=== PATIENT | female | born 1995 | race Caucasian/White ===

== ENCOUNTER 2016-11-06 04:11 | Emergency (ER) | payer OTHER, BC ==
[2016-11-06] MEDS ORDERED: Sodium Chloride 0.9% 10 ML Syringe FLUSH PRN (04:17)
[2016-11-06] MEDS ORDERED: Racepinephrine 2.25% 0.5 ML Neb Soln NEB ONE (04:17)
[2016-11-06] MEDS ORDERED: Budesonide 0.5 MG/2 ML Neb Susp NEB ONE (04:17)
[2016-11-06] MEDS ORDERED: Racepinephrine 2.25% 0.5 ML Neb Soln ONE (04:17)
[2016-11-06] MEDS ORDERED: Sodium Chloride 0.9% 1,000 ML IV SCH (04:30)
[2016-11-06] MEDS ORDERED: Adenosine 6 MG/2 ML SDV ONE (04:50)
[2016-11-06] MEDS ORDERED: Adenosine 6 MG/2 ML SDV IVPUSH ONE ×2 (04:53→04:59)
[2016-11-06] MEDS ORDERED: Metoprolol Tartrate 5 MG/5 ML SDV IVPUSH ONE (04:59)
[2016-11-06] MEDS ORDERED: methylPREDNISolone Sodium Succinate 125 MG/2 ML SDV IVPUSH ONE (04:59)
--- NOTE | 2016-11-06 05:06 | EDM.PDOC ---
[id number]: [facility] [place] Time Seen by Provider: 11/06/16 04:11 Source of Information: Reports: Patient (04), EMS, RN Notes Reviewed History Limitations: Reports: No Limitations - History of Present Illness INITIAL COMMENTS - FREE TEXT/NARRATIVE: EMS arrival, received albuterol, albuterol/ipratropium, and albuterol nebulizer prior to arrival as well as terbutaline 0.25 mg subcutaneous. Chief complaint Trouble breathing History of present illness 41-year-old female with history of asthma and history of SVT, never admitted or intubated with asthma in the past. Started developing a cough and shortness of breath when she woke up about 45 minutes before calling the ambulance. No fever or chills No chance of Throat is sore voice is somewhat hoarse. No chest pain no abdominal pain no diarrhea no vomiting After arrival during treatment she started developing sharp chest pain. Additional history of SVT treated with adenosine a year ago Treatments [employer]: Reports: Breathing Treatments, EKG, Other Medication(s) headache Pain Score (Numeric/FACES): 6 - Related Data Allergies Allergy/AdvReac Type Severity Reaction Status Date / Time ciprofloxacin [From Cipro] Allergy Hives Verified 11/06/16 04:42 Home Meds: Home Meds Albuterol Sulfate [Ventolin Hfa] 2 puff INH Q4H PRN 11/06/16 [History] Potassium Chloride 20 meq PO BID #6 tablet.er 11/06/16 [Rx] Prednisone [IJD: predniSONE] 20 mg PO BID #10 tab 11/06/16 [Rx] Sertraline HCl [Zoloft] 200 mg PO DAILY 11/06/16 [History] buPROPion HCl [Wellbutrin Xl] 150 mg PO DAILY 11/06/16 [History] traMADol [Ultram] 50 mg PO QID PRN #8 tab 11/06/16 [Rx] Past Medical History Cardiovascular History: Reports: Other (See Below) Other Cardiovascular History: SVT Respiratory History: Reports: Asthma Psychiatric History: Reports: Depression - Past Surgical History HEENT Surgical History: Reports: Adenoidectomy, Tonsillectomy GI Surgical History: Reports: Appendectomy Musculoskeletal Surgical History: Reports: Other (See Below) Other Musculoskeletal Surgeries/Procedures:: screw in hip ED ROS GENERAL - Review of Systems Review Of Systems: See Below Constitutional: Denies: Fever, Chills, Diaphoresis HEENT: Reports: Throat Pain, Throat Swelling. Denies: Ear Pain, Eye Pain, Rhinitis Respiratory: Reports: Shortness of Breath, Wheezing, Cough Cardiovascular: Reports: Chest Pain, Palpitations Endocrine: Reports: No Symptoms GI/Abdominal: Reports: No Symptoms : Reports: No Symptoms Musculoskeletal: Reports: No Symptoms Skin: Reports: No Symptoms Neurological: Reports: No Symptoms (So) Hematologic/Lymphatic: Reports: No Symptoms Immunologic: Reports: No Symptoms ED EXAM, GENERAL - Physical Exam Exam: See Below Exam Limited By: No Limitations General Appearance: Alert, Moderate Distress, Other (Tachycardia present, BiPAP in place, inspiratory stridor is noted) Eye Exam: Right Eye: Normal Inspection Ears: Normal External Exam, Normal Canal, Hearing Grossly Normal, Normal TMs Nose: Normal Inspection, Normal Mucosa Throat/Mouth: Normal Lips, Normal Teeth, Normal Gums, Other (Mild edema and erythema of the soft palate and uvula, mildly hoarse voice) Head: Atraumatic Neck: Supple, Non-Tender. No: Lymphadenopathy (R), Lymphadenopathy (L) Respiratory/Chest: Chest Non-Tender, Stridor (But this is extinguished by getting her to talk), Other (BiPAP was taken off and no wheezing noted). No: Rales, Rhonchi, Wheezing Cardiovascular: Tachycardia GI/Abdominal: Normal Bowel Sounds, Soft, Non-Tender Back Exam: Normal Inspection Extremities: Normal Inspection Neurological: Alert, Oriented, Normal Cognition Psychiatric: Anxious Skin Exam: Warm, Dry, Intact, Normal Color, No Rash Lymphatic: No Adenopathy Course - Vital Signs Last Recorded V/S: Last Vital Signs Temp 36.9 C 11/06/16 04:39 Pulse 143 H 11/06/16 05:12 Resp 16 11/06/16 06:01 BP 137/78 11/06/16 06:01 Pulse Ox 97 11/06/16 06:01 - Orders/Labs/Meds Orders: Active Orders 24 hr Category Date Time Status EKG Documentation Completion [RC] ASDIRECTED Care 11/06/16 04:17 Active Peripheral IV Care [RC] . DIRECTED Care 11/06/16 04:17 Active RT Aerosol Therapy [RC] ASDIRECTED Care 11/06/16 04:18 Active Chest 1V Frontal [CR] Stat Exams 11/06/16 04:48 Taken CULTURE STREP A CONFIRMATION [RM] Stat Lab 11/06/16 05:10 Results STREP SCRN A RAPID W CULT CONF [] Stat Lab 11/06/16 05:10 Results Sodium Chloride 0.9% [Normal Saline] 1,000 ml Med 11/06/16 04:30 Active IV ASDIRECTED Sodium Chloride 0.9% [Saline Flush] Med 11/06/16 04:17 Active 10 ml FLUSH ASDIRECTED PRN Peripheral IV Insertion Adult [OM.PC] Routine Oth 11/06/16 04:16 Ordered EKG 12 Lead [EK] Routine Ther 11/06/16 04:16 Ordered Medication Orders Sodium Chloride (Normal Saline) 1,000 mls @ 125 mls/hr IV ASDIRECTED SHANNEN Last Admin: 11/06/16 04:37 Dose: 125 mls/hr Sodium Chloride (Saline Flush) 10 ml FLUSH ASDIRECTED PRN PRN Reason: Keep Vein Open Last Admin: 11/06/16 04:38 Dose: 10 ml Labs: Laboratory Tests 11/06/16 11/06/16 Range/Units 04:36 04:36 WBC 10.9 (4.5-11.0) K/uL RBC 4.63 (3.30-5.50) M/uL Hgb 13.0 (12.0-15.0) g/dL Hct 38.6 (36.0-48.0) % MCV 83 (80-98) fL MCH 28 (27-31) pg MCHC 34 (32-36) % Plt Count 309 (150-400) K/uL Sodium 140 (140-148) mmol/L Potassium 2.7 L* (3.6-5.2) mmol/L Chloride 104 (100-108) mmol/L Carbon Dioxide 20 L (21-32) mmol/L Anion Gap 18.7 H (5.0-14.0) mmol/L BUN 6 L (7-18) mg/dL Creatinine 1.0 (0.6-1.0) mg/dL Est Cr Clr Drug Dosing TNP Estimated GFR (MDRD) > 60 (>60) Glucose 164 H (74-106) mg/dL Calcium 8.7 (8.5-10.1) mg/dL Meds: Medications Generic Name Dose Route Start Last Admin Trade Name Freq PRN Reason Stop Dose Admin Sodium Chloride 1,000 mls @ 125 mls/hr 11/06/16 04:30 11/06/16 04:37 Normal Saline IV 125 mls/hr ASDIRECTED SHANNEN Administration Sodium Chloride 10 ml 11/06/16 04:17 11/06/16 04:38 Saline Flush FLUSH 10 ml ASDIRECTED PRN Administration Keep Vein Open Discontinued Medications Generic Name Dose Route Start Last Admin Trade Name Eduardo PRN Reason Stop Dose Admin Adenosine Confirm 11/06/16 04:50 11/06/16 05:04 Adenocard Administered 11/06/16 04:51 Not Given Dose 18 mg .ROUTE .STK-MED ONE Adenosine 6 mg 11/06/16 04:53 11/06/16 04:52 Adenocard IVPUSH 11/06/16 04:54 6 mg NOW ONE Administration Adenosine 12 mg 11/06/16 04:59 11/06/16 04:55 Adenocard IVPUSH 11/06/16 05:00 12 mg NOW ONE Administration Budesonide 0.5 mg 11/06/16 04:17 11/06/16 04:34 Pulmicort NEB 11/06/16 04:18 0.5 mg ONETIME ONE Administration Methylprednisolone Sodium Succinate 125 mg 11/06/16 04:59 11/06/16 05:09 Solu-Medrol IVPUSH 11/06/16 05:00 125 mg ONETIME ONE Administration Metoprolol Tartrate 5 mg 11/06/16 04:59 11/06/16 05:12 Lopressor IVPUSH 11/06/16 05:00 5 mg ONETIME ONE Administration Potassium Chloride 20 meq 11/06/16 05:54 11/06/16 06:00 Klor-Con M20 PO 11/06/16 05:55 20 meq ONETIME ONE Administration Racepinephrine 0.5 ml 11/06/16 04:17 11/06/16 04:25 S-2 2.25% NEB 11/06/16 04:18 0.5 ml ONETIME ONE Administration Tramadol HCl 50 mg 11/06/16 06:28 11/06/16 06:42 Ultram PO 11/06/16 06:29 50 mg ONETIME ONE Administration - Re-Assessments/Exams Free Text/Narrative Re-Assessment/Exam: 11/06/16 05:08 21-year-old female presenting with difficulty breathing and with tachycardia. Difficulty breathing appears to be originating in the throat rather than the lungs the lungs sound quite clear and there is stridor rather than wheezing present. EKG shows narrow complex tachycardia rate 152 Epinephrine 0.5 mg by nebulizer with slight relief PAS 90.5 mg by nebulizer. Adenosine 6 mg followed by 12 mg IV for tachycardia with no response Metoprolol 5 mg IV ordered This resulted in heart rate between 100-110 Solu-Medrol Medrol 125 mg IV for swelling in the throat Chest x-ray negative by my interpretation 11/06/16 06:40 Strep screen was negative Potassium 2.7, perhaps low because of both nebulizers CBC was normal Condition improved total she had more chest discomfort during her stay here. Never was hypoxic on room air. Impression #1 uvulitis or laryngeal tracheitis, treated with oral prednisone #2 SVT, or tachycardia, treated with metoprolol after no effect with adenosine #3 hypokalemia Follow-up needed to recheck potassium, will give 3 days as treatment Tramadol 50 mg by mouth for pain given here C prescriptions below Return to emergency if worsening, see discharge instructions Departure - Departure Time of Disposition: 06:33 Disposition: Home, Self-Care 01 Condition: Good Clinical Impression: Laryngotracheitis, Supraventricular tachycardia, Hypokalemia - Discharge Information Prescriptions: Potassium Chloride 20 meq PO BID #6 tablet.er Prednisone [IJD: predniSONE] 20 mg PO BID #10 tab traMADol [Ultram] 50 mg PO QID PRN #8 tab PRN Reason: Moderate pain Instructions: Paroxysmal Supraventricular Tachycardia, Uvulitis, Hypokalemia Referrals: PCP,None [Primary Care Provider] - Forms: ED Department Discharge Additional Instructions: What brought you here tonight was a sore throat. There is swelling in the uvula at the back of the throat and in the windpipe which causes a voice to be hoarse , this can be called uvulitis or laryngotracheitis. This will improve with steroid medication such as prednisone which reduces swelling. This is most likely caused by a virus or also be caused by allergies. Your blood count was normal and you have not had a fever so bacterial infection is not expected so antibiotics are not prescribed. Your potassium was low perhaps as a result of all the nebulizers you had. Please make an appointment to be seen by her physician or clinic in the next week, to have her potassium rechecked and determine if any further treatment is needed Return to the emergency room if you are getting short of breath, develop high fevers, repeated vomiting or any other new symptoms - My Orders Last 24 Hours: My Active Orders 11/06/16 04:16 Peripheral IV Insertion Adult [OM.PC] Routine EKG 12 Lead [EK] Routine 11/06/16 04:17 EKG Documentation Completion [RC] ASDIRECTED Peripheral IV Care [RC] . DIRECTED Sodium Chloride 0.9% [Saline Flush] 10 ml FLUSH ASDIRECTED PRN 11/06/16 04:18 RT Aerosol Therapy [RC] ASDIRECTED 11/06/16 04:30 Sodium Chloride 0.9% [Normal Saline] 1,000 ml IV ASDIRECTED 11/06/16 04:48 Chest 1V Frontal [CR] Stat 11/06/16 05:10 CULTURE STREP A CONFIRMATION [RM] Stat STREP SCRN A RAPID W CULT CONF [RM] Stat - Assessment/Plan Last 24 Hours: My Active Orders 11/06/16 04:16 Peripheral IV Insertion Adult [OM.PC] Routine EKG 12 Lead [EK] Routine 11/06/16 04:17 EKG Documentation Completion [RC] ASDIRECTED Peripheral IV Care [RC] . DIRECTED Sodium Chloride 0.9% [Saline Flush] 10 ml FLUSH ASDIRECTED PRN 11/06/16 04:18 RT Aerosol Therapy [RC] ASDIRECTED 11/06/16 04:30 Sodium Chloride 0.9% [Normal Saline] 1,000 ml IV ASDIRECTED 11/06/16 04:48 Chest 1V Frontal [CR] Stat 11/06/16 05:10 CULTURE STREP A CONFIRMATION [RM] Stat STREP SCRN A RAPID W CULT CONF [RM] Stat
[2016-11-06] MEDS ORDERED: Potassium Chloride 20 MEQ Tab.ER PO ONE (05:54)
[2016-11-06] MEDS ORDERED: traMADol 50 MG Tab PO ONE (06:28)
[2016-11-06 06:55] VITALS: BP 142/85
--- NOTE | 2016-11-06 09:10 | CR ---
Chest 1V Frontal HISTORY: chest pain tachycardia COMPARISON: None FINDINGS: Portable chest, 0503 hours. Lungs appear clear and normally aerated. Cardiomediastinal silhouette is within normal limits. No va scular redistribution or pleural fluid can be seen. Bony structures and soft tissues are unremarkabl e. IMPRESSION: No acute chest abnormality identified.
== END 2016-11-06 06:52 | disposition home or self-care (01) ==
LOC: JP.ED 04:11
DX: J04.2 Acute laryngotracheitis (principal); I47.1 Supraventricular tachycardia; E87.6 Hypokalemia; J45.909 Unspecified asthma, uncomplicated; F32.9 Major depressive disorder, single episode, unspecified; Z88.1 Allergy status to other antibiotic agents; Z79.899 Other long term (current) drug therapy; Z90.49 Acquired absence of other specified parts of digestive tract; Z98.890 Other specified postprocedural states
CPT/HCPCS: 36415; 71010; 80048; 85027; 87081; 87430; 93005; 96361; 96374; 96375; 99285; A9270; J0153; J2930; J7040; J7050; J3490